=== PATIENT | female | born 1935 | race Caucasian/White ===

== ENCOUNTER 2023-06-23 07:19 | Outpatient (CLI) | payer SELFPAY | END 2023-06-23 07:20 | disposition EMS.NT | LOC: EMS 07:19 | DX: R45.82 Worries (principal); R41.9 Unspecified symptoms and signs involving cognitive functions and awareness ==

== ENCOUNTER 2023-09-19 11:30 | Outpatient (CLI) | payer SELFPAY | END 2023-09-19 23:59 | disposition left against medical advice (07) | LOC: EMS 11:30 | DX: R53.81 Other malaise (principal) ==

== ENCOUNTER 2023-12-13 05:00 | Outpatient (CLI) | payer MEDICARE | END 2023-12-13 23:59 | disposition critical access hospital (66) | LOC: EMS 05:00 | DX: R06.02 Shortness of breath (principal); R06.2 Wheezing | CPT/HCPCS: A0425; A0427 ==

== ENCOUNTER 2023-12-13 05:10 | Emergency (ER) | payer MEDICARE, OTHER ==
[2023-12-13] MEDS ORDERED: MORPHINE 2 MG/ML CARPUJECT IVP STA (05:19)
--- NOTE | 2023-12-13 05:26 | ED Physician Documentation ---
PD HPI DYSPNEA - Stated complaint Stated Complaint: SOA - Chief complaint Chief Complaint: Resp - History obtained from History obtained from: Patient, EMS - Additional information Additional information: The patient is brought to the emergency department by EMS for chief complaint of dyspnea that started this evening. The patient had not been ill with anything. She is known to have atrial fibrillation and is not aware of having history of congestive heart failure though she does take Lasix. She has been noticing some swelling in her legs recently. Medics note that they found a sat ranging in the upper 80s when they picked her up and that they noticed Rales on exam. They gave her IV Solu-Medrol and a DuoNeb and route which they report brought her sats up. However, patient's respirations were labored and so they placed her on CPAP. The patient states that she does not really feel any better than she did. She denies any chest pain. No fevers or cough recently. PD PAST MEDICAL HISTORY - Past Medical History Past Medical History: Yes Cardiovascular: Congestive heart failure, Hypertension, High cholesterol, Atrial fibrillation Endocrine/Autoimmune: Type 2 diabetes Psych: Anxiety - Past Surgical History Past Surgical History: No - Present Medications Home Medications: Ambulatory Orders Medication Instructions Recorded Confirmed ALPRAZolam [Xanax] 1 tab PO BID 12/13/23 12/13/23 Apixaban [Eliquis] 1 tab PO BID 12/13/23 12/13/23 Aspirin [[place] Aspirin] 1 tab PO DAILY 12/13/23 12/13/23 Atorvastatin [Lipitor] 20 mg PO DAILY 12/13/23 12/13/23 Furosemide [Lasix] 40 mg PO DAILY 12/13/23 12/13/23 Hydrocodone/Acetaminophen 1 tab PO Q6HR 12/13/23 12/13/23 [Hydrocodone-Acetamin 10-325 mg] Insulin NPH Hum/Reg Insulin Hm 12/13/23 [Novolin 70-30 100 Unit/ml Vial] Losartan [Cozaar] 100 mg PO DAILY 12/13/23 12/13/23 Primidone 250 mg PO BID 12/13/23 12/13/23 Sertraline [Zoloft] 50 mg PO DAILY 12/13/23 12/13/23 buPROPion [Wellbutrin Sr] 150 mg PO DAILY 12/13/23 12/13/23 carvediloL [Coreg] 1 tab PO BID 12/13/23 12/13/23 diltiaZEM [Cardizem] 180 mg PO BID 12/13/23 12/13/23 metFORMIN [Glucophage] 1,000 mg PO BID 12/13/23 12/13/23 oxyBUTYnin chloride [Oxybutynin 20 mg PO DAILY 12/13/23 12/13/23 Chloride] - Allergies Allergies/Adverse Reactions: Allergies Allergy/AdvReac Type Severity Reaction Status Date / Time No Known Drug Allergies Allergy Verified 12/13/23 05:18 - Social History Does the pt smoke?: No Smoking Status: Never smoker PD ED PE NORMAL - Vitals Vital signs reviewed: Yes - General General: Well developed/nourished, Other (Alert, appears anxious, labored respirations.) - HEENT HEENT: Atraumatic, EOMI, Moist mucous membranes - Neck Neck: Supple, no meningeal sign - Cardiac Cardiac: No murmur, Strong equal pulses, Other (Tachycardic rate, fairly regular rhythm, no murmurs.) - Respiratory Respiratory: Other (Moderate respiratory distress with labored respirations and speaking in phrases. Rales in bilateral lung bases.) - Abdomen Abdomen: Soft, Non tender, Non distended - Derm Derm: Normal color, Warm and dry, No rash - Extremities Extremities: No deformity, Other (1+ pitting edema bilateral lower extremities symmetrically.) - Neuro Neuro: Other (Alert, answer some questions. Grossly appropriate and intact.) - Psych Psych: Normal mood, Normal affect Results - Vitals Vitals: Vital Signs - 24 hr 12/13/23 12/13/23 12/13/23 05:12 05:35 05:40 Temperature 36.0 C L Heart Rate 128 H 100 107 H Respiratory 24 24 Rate Blood Pressure 190/132 H 171/110 H O2 Saturation 100 96 12/13/23 12/13/23 12/13/23 05:45 06:00 06:30 Temperature Heart Rate 104 H 107 H 117 H Respiratory 22 20 20 Rate Blood Pressure 111/89 H 134/89 H 135/93 H O2 Saturation 95 98 99 Oxygen O2 Source BIPAP - EKG (time done) 0520 EKG releavant findings:: EKG personally interpreted by author of this note. Relevant findings are: Rate: Rate (enter#) (125) Rhythm: Other (Sinus or ectopic atrial tachycardia) [place]: LAD (Borderline) QRS: Normal Ischemia: Normal ST segments Compare to prior EKG: Old EKG unavailable Computer interpretation: Agree with computer - Labs Labs: Laboratory Tests 12/13/23 12/13/23 12/13/23 05:15 05:15 05:15 WBC 15.7 H RBC 4.43 Hgb 14.1 Hct 44.7 MCV 100.9 H MCH 31.8 H MCHC 31.5 L RDW 14.2 Plt Count 404 MPV 10.0 Neut # (Auto) Not Reportable Lymph # (Auto) Not Reportable [place] # (Auto) Not Reportable Eos # (Auto) Not Reportable Baso # (Auto) Not Reportable Absolute Nucleated RBC Not Reportable Total Counted 100 Band Neuts % (Manual) 0 Reactive Lymphs % (Man) 3 Abnorm Lymph % (Manual) 0 Nucleated RBC % Not Reportable Neutrophils # (Manual) 8.3 H Lymphocytes # (Manual) 6.9 H Monocytes # (Manual) 0.5 Eosinophils # (Manual) 0.0 Basophils # (Manual) 0.0 Differential Comment MANUAL DIFFERENTIAL WBC Morphology NORMAL APPEARANCE Platelet Estimate NORMAL (130-450,000) Platelet Morphology NORMAL APPEARANCE RBC Morph Micro Appear NORMAL APPEARANCE Bld Gas Analysis Time Sample Site ABG pH ABG pCO2 ABG pO2 ABG HCO3 ABG Total CO2 ABG O2 Saturation ABG Base Excess Power Test O2 Delivery Device FiO2 EPAP IPAP Sodium 139 Potassium 4.7 H Chloride 105 Carbon Dioxide 27 Anion Gap 7.0 BUN 24 H Creatinine 1.1 Estimated GFR (MDRD) 47 L Glucose 149 H Calcium 9.7 Total Bilirubin 0.4 AST 34 ALT 26 Alkaline Phosphatase 106 Troponin I High Sens 36.1 H* Total Protein 7.0 Albumin 3.9 Globulin 3.1 Albumin/Globulin Ratio 1.3 Lipase 16 12/13/23 05:59 WBC RBC Hgb Hct MCV MCH MCHC RDW Plt Count MPV Neut # (Auto) Lymph # (Auto) [place] # (Auto) Eos # (Auto) Baso # (Auto) Absolute Nucleated RBC Total Counted Band Neuts % (Manual) Reactive Lymphs % (Man) Abnorm Lymph % (Manual) Nucleated RBC % Neutrophils # (Manual) Lymphocytes # (Manual) Monocytes # (Manual) Eosinophils # (Manual) Basophils # (Manual) Differential Comment WBC Morphology Platelet Estimate Platelet Morphology RBC Morph Micro Appear Bld Gas Analysis Time 0608 Sample Site LEFT RADIAL ABG pH 7.36 ABG pCO2 48 H ABG pO2 81 ABG HCO3 26.0 ABG Total CO2 27.5 ABG O2 Saturation 96 ABG Base Excess 0.0 Power Test POSITIVE O2 Delivery Device BiPAP FiO2 0.35 EPAP 6 IPAP 12 Sodium Potassium Chloride Carbon Dioxide Anion Gap BUN Creatinine Estimated GFR (MDRD) Glucose Calcium Total Bilirubin AST ALT Alkaline Phosphatase Troponin I High Sens Total Protein Albumin Globulin Albumin/Globulin Ratio Lipase PD Medical Decision Making - ED course Complexity details: reviewed old records, reviewed results, re-evaluated patient, considered differential, d/w patient, d/w family ED course: The patient was in respiratory distress on arrival and was on CPAP. She did have oxygen saturation of 100% but was still perceiving herself to be dyspneic. With the rales on exam and the edema in her legs, as well as the Significantly elevated blood pressure at 190s over 130s, I felt that she should be treated for pulmonary edema presumptively. She was given 80 mg of Lasix IV as well as an inch of Nitropaste and a single sublingual nitroglycerin. She was also given a small dose of morphine IV 2 mg. I did also order a dose of Cardizem as EKG showed tachycardia in the 120s without clear P waves. The patient demonstrated drastic improvement after receiving the above medications. Her blood pressure came down to normal and her heart rate normalized into the 90s. She did appear to have a more irregular heartbeat at this time and monitor reading did appear more consistent with A-fib. Her laboratory studies showed a white blood cell count of 15.7 with a normal hemoglobin; elevated potassium at 4.7 with normal electrolytes otherwise; BUN of 24 with creatinine 1.1; glucose 149; and troponin 36.1. BNP was still pending at the time of this dictation. ABG showed a pH of 7.36 pCO2 of 48 and pO2 of 81 on FiO2 of 35%. EPAP was 6 and IPAP 12. The patient overall was doing very well and appeared much more comfortable than when she came in though her heart rate was creeping back up into the 120s. I ordered another IV dose of Cardizem and an oral dose of long-acting Cardizem 240 mg. The patient's daughter did arrive and I discussed the patient's progress with her and she was able to give us more details about how the patient has been doing recently. At this point in time, the patient can probably come off BiPAP settings or at least trial off BiPAP, but due to respiratory therapy change of shift, this is pending at this time. Patient will be signed out to Dr. Tovar at change of shift, pending reevaluation off BiPAP, response of heart rate to Cardizem, and final disposition. - Critical Care Time(min): 30 Comments: Critical care time was necessary, secondary to high probability of imminent and life-threatening decline, due to respiratory failure secondary to pulmonary edema and CHF exacerbation in the setting of hypertension. Time Includes: Direct patient care, Review records, Reassess patient, Document care, Coordinate care, Medical consult, Family consult for tx dec, See progress note Data interpretation: Labs, Pulse ox, ABG, CXR, Cardiac output, See progress note Procedures included in critical care time: Ventilator mgmt, See progress note Departure - Departure Forms: PCP List
[2023-12-13 05:27] LABS: BASOPHILS % (AUTO) 0.8 %; EOSINOPHILS % (AUTO) 2.4 %; HCT - HEMATOCRIT 44.7 % (37.0-47.0); HGB - HEMOGLOBIN 14.1 g/dL (12.0-16.0); LYMPHOCYTES % (AUTO) 33.2 %; MEAN CORPUSCULAR HEMOGLOBIN 31.8 pg (27.0-31.0); MEAN CORPUSCULAR HGB CONC 31.5 g/dL (32.0-36.0); MEAN CORPUSCULAR VOLUME 100.9 fL (81.0-99.0); MONOCYTES % (AUTO) 6.1 %; NEUTROPHILS % (AUTO) 57.1 %; PLT - PLATELET COUNT 404 10^3/uL (130-450); RED BLOOD COUNT 4.43 10^6/uL (4.20-5.40); RED CELL DISTRIBUTION WIDTH 14.2 % (12.0-15.0); WHITE BLOOD COUNT 15.7 x10^3/uL (4.8-10.8)
[2023-12-13] MEDS: FUROSEMIDE 40 MG/4 ML VIAL IVP STA (05:27)
[2023-12-13] MEDS: NITROGLYCERIN 2% PASTE TOP STA (05:27)
[2023-12-13] MEDS: MORPHINE 2 MG/ML CARPUJECT IVP STA (05:27)
[2023-12-13] MEDS: diltiaZEM INJ 5 MG/ML VIAL IVP STA ×3 (05:31→10:04)
[2023-12-13 05:32] LABS: ABNORMAL LYMPHS % (MANUAL) 0 %; BAND NEUTROPHILS % (MANUAL) 0 %
[2023-12-13] MEDS: NITROGLYCERIN SL 0.4 MG TABLET SL STA (05:34)
[2023-12-13 05:52] LABS: ALBUMIN 3.9 g/dL (3.2-5.5); ALBUMIN/GLOBULIN RATIO 1.3 (1.0-2.2); BILIRUBIN,TOTAL 0.4 mg/dL (0.2-1.0); CALCIUM 9.7 mg/dL (8.5-10.3); CREATININE 1.1 mg/dL (0.6-1.3); POTASSIUM 4.7 mmol/L (3.5-4.5)
[2023-12-13 05:55] LABS: LYMPHOCYTES # (MANUAL) 6.9 10^3/uL (1.5-3.5); LYMPHOCYTES % (MANUAL) 41 %; MONOCYTES # (MANUAL) 0.5 10^3/uL (0.0-1.0); NEUTROPHILS # (MANUAL) 8.3 10^3/uL (1.5-6.6); REACTIVE LYMPHS % (MANUAL) 3 %
[2023-12-13 05:56] LABS: DIFFERENTIAL COMMENT MANUAL DIFFERENTIAL; PLATELET ESTIMATE, MANUAL NORMAL (130-450,000) (NORMAL); PLATELET MORPHOLOGY NORMAL APPEARANCE (NORMAL); RBC MORPHOLOGY (MULTIPLE) NORMAL APPEARANCE (NORMAL); WBC MORPHOLOGY (MULTIPLE) NORMAL APPEARANCE (NORMAL)
[2023-12-13 06:11] LABS: ABG PCO2 48 mmHg (34-45); ABG PH 7.36 (7.35-7.45); ABG PO2 81 mmHg (80-100)
[2023-12-13 06:12] LABS: ABG OXYGEN SATURATION 96 % (94-98); ABG TCO2 27.5 MMOL/L (21.0-29.0); ALLEN TEST POSITIVE
[2023-12-13 06:13] LABS: ABG FRACTION OF INSPIRED O2 0.35
[2023-12-13] MEDS: diltiaZEM CD 120 MG CAPSULE PO STA (06:44)
--- NOTE | 2023-12-13 07:27 | ED Physician Documentation ---
ED Addendum - Addendum Addendum: 12/13/23 07:[address] Mcfarland at 7 AM shift change. Briefly 88-year-old woman with history of A-fib, pacemaker in place with acute respiratory failure this morning with profound hypertension needing BiPAP and clinical evidence of CHF. At this point after blood pressure control and rate control she is doing much better and was taken off of BiPAP. She is comfortable and breathing easily. In signout I was a little worried about electrical alternans on her EKG, and I did a bedside limited echo which did not show any pericardial effusion. At this juncture we are waiting for her second troponin to be resulted as the first 1 was mildly elevated. 12/13/23 08:03 She did require supplemental oxygen going down to about 89% on room air and is on a 2 L nasal cannula now but still appearing comfortable. In the interim her troponin went from 36 up to 103.2. Unclear if this represents a primary cardiac effect or is potentially secondary to her respiratory failure this morning and profound hypertension. Discussed with patient and family at the bedside and she would like transfer for cardiology workup and [facility] is called at this time for potential transfer. I did order aspirin, heparin drip without bolus as she is on Eliquis, and IV metoprolol as she is still somewhat hypertensive and tachycardic, heart rate about 115 and blood pressure 136/89. 12/13/23 09:[address] Valentine, commercial lines manager associate with [facility] in [place] and he agrees with transfer and defers to their hospitalist service for admission and now waiting for callback from them. 12/13/23 09:40 Still having some trouble with rate control. She had received a second dose of IV metoprolol on my shift and heart rate currently about 125, will administer IV diltiazem as well. Not too worried about bradycardias with the pacemaker in place. 12/13/23 10:34 Heart rate now in the 70s after above interventions. Still waiting for hospitalist callback 12/13/23 11:41 Accepted to [facility] by Dr. Frankel at this time, cobras are completed and she is stable for transport. Disposition: Transferred to [facility] Condition serious but stable Diagnoses: 1. Acute pulmonary edema 2. Elevated troponin 3. A-fib with RVR
[2023-12-13] MEDS: HEPARIN 25000UNITS/500ML (D5W) 25,000 UNIT/500 ML BAG IV SCH (08:36)
[2023-12-13] MEDS: METOPROLOL 5 MG/5 ML VIAL IVP STA ×2 (08:40→09:25)
--- NOTE | 2023-12-13 08:41 | XRAY Report ---
PROCEDURE: Chest 1V INDICATIONS: dyspnea/rales TECHNIQUE: One view of the chest was acquired. COMPARISON: None. FINDINGS: Surgical changes and devices: Pacemaker. Lungs and pleura: Mild interstitial pulmonary edema. Likely left basilar atelectasis and mild pleura l fluid. Mediastinum: Mediastinal contours appear normal. Cardiomegaly. Bones and chest wall: No suspicious bony lesions. Overlying soft tissues appear unremarkable. IMPRESSION: Congestive heart failure. Reviewed by: Phani Issa MD on 12/13/2023 8:40 AM PDT Approved by: Phani Issa MD on 12/13/2023 8:40 AM PDT Station ID: [id number]
[2023-12-13] MEDS: ASPIRIN CHEW 81 MG TABLET PO STA (08:42)
[2023-12-13] MEDS ORDERED: ALPRAZolam 0.25 MG TABLET PO PRN (09:09)
[2023-12-13] MEDS: carvediloL 12.5 MG TABLET PO SCH (09:18)
[2023-12-13] MEDS: LOSARTAN 50 MG TABLET PO SCH (09:19)
[2023-12-13] MEDS: SERTRALINE 50 MG TABLET PO SCH (09:19)
[2023-12-13] MEDS: ATORVASTATIN 10 MG TABLET PO SCH (09:25)
[2023-12-13] MEDS: HYDROcod/ACETAM 5/325 MG TABLET PO PRN (09:29)
[2023-12-13] MEDS: PRIMIDONE 50 MG TABLET PO SCH (09:29)
[2023-12-13] MEDS ORDERED: METOPROLOL TARTRATE 25 MG TABLET PO SCH (10:00)
[2023-12-13 13:14] LABS: B. PARAPERTUSSIS- RESP PCR PAN NOT DETECTED; B. PERTUSSIS- RESP PCR PANEL NOT DETECTED; C. PNEUMONIAE- RESP PCR PANEL NOT DETECTED; CORONAVIRUS 229E-RESP PCR NOT DETECTED; CORONAVIRUS HKU1-RESP PCR NOT DETECTED; CORONAVIRUS NL63-RESP PCR NOT DETECTED; CORONAVIRUS OC43-RESP PCR NOT DETECTED; HUMAN METAPNEUMOVIRUS NOT DETECTED; INFLUENZA A- RESP PCR PANEL NOT DETECTED; INFLUENZA B - RESP PCR PANEL NOT DETECTED; M. PNEUMONIAE- RESP PCR PANEL NOT DETECTED; PARAINFLUENZA VIRUS 1 NOT DETECTED; PARAINFLUENZA VIRUS 2 NOT DETECTED; PARAINFLUENZA VIRUS 3 NOT DETECTED; PARAINFLUENZA VIRUS 4 NOT DETECTED; RHINOVIRUS/ENTEROVIRUS NOT DETECTED; RSV- RESP PCR PANEL NOT DETECTED; SARS-CoV-2 -RESP PCR PANEL NOT DETECTED
[2023-12-13 15:17] VITALS: O2SAT 98
[2023-12-13 15:37] VITALS: BP 143/101
== END 2023-12-13 15:30 | disposition short-term general hospital (02) ==
LOC: EDUNIT# → ED 05:10
DX: I11.0 Hypertensive heart disease with heart failure (principal); I50.1 Left ventricular failure, unspecified; R79.89 Other specified abnormal findings of blood chemistry; I48.20 Chronic atrial fibrillation, unspecified; Z79.01 Long term (current) use of anticoagulants; Z79.82 Long term (current) use of aspirin; E78.00 Pure hypercholesterolemia, unspecified; E11.9 Type 2 diabetes mellitus without complications; Z79.4 Long term (current) use of insulin; Z79.84 Long term (current) use of oral hypoglycemic drugs
CPT/HCPCS: 36415; 36600; 71045; 80053; 82803; 83690; 83880; 84484; 85025; 85730; 87633; 93005; 94660; 96374; 96375; 96376; 99291; A9270

== ENCOUNTER 2023-12-13 15:28 | Outpatient (CLI) | payer MEDICARE | END 2023-12-13 23:59 | disposition home or self-care (01) | LOC: EMS 15:28 | PROVIDERS: ATTEND Emergency Medicine | DX: R06.02 Shortness of breath (principal); R06.2 Wheezing | CPT/HCPCS: A0425; A0426 ==